=== PATIENT | female | born 1990 | race Caucasian/White ===

== ENCOUNTER 2017-07-06 11:32 | Emergency (ER) | payer OTHER ==
[2017-07-06] MEDS ORDERED: LIDOCAINE 1% MDV INJ 50 ML VIAL SC (12:30)
[2017-07-06] MEDS ORDERED: LIDOCAINE 1% MDV 20ML VIAL SC (12:30)
[2017-07-06] MEDS: LIDOCAINE 1% MDV 20ML VIAL SC (13:03)
== END 2017-07-06 14:14 | disposition home or self-care (01) ==
LOC: M ED 11:32
DX: T16.2XXA Foreign body in left ear, initial encounter (principal); L08.9 Local infection of the skin and subcutaneous tissue, unspecified; Y92.89 Other specified places as the place of occurrence of the external cause; I10 Essential (primary) hypertension; E03.9 Hypothyroidism, unspecified; Z88.0 Allergy status to penicillin; Z79.899 Other long term (current) drug therapy
CPT/HCPCS: 10120